=== PATIENT | female | born 1990 | race Caucasian/White ===

== ENCOUNTER 2017-03-05 13:42 | Inpatient (IN) | payer OTHER ==
[~2017-03-05 13:42] MED LIST: MEDR2.5 PO; METF500T PO
[2017-03-05] MEDS ORDERED: BISACODYL 10 MG SUPP RECTAL PRN (14:15)
[2017-03-05] MEDS ORDERED: SODIUM CHLORIDE 0.9% FLUSH 10 ML FLUSH IV FLUSH PRN (14:15)
[2017-03-05] MEDS ORDERED: HYDROmorphone HCL PF 1 MG/ML VIAL IV PRN ×2 (14:15)
[2017-03-05] MEDS ORDERED: NALOXONE HCL 0.4 MG/ML AMP IV PRN (14:15)
[2017-03-05 17:00] VITALS: BP 146/96; PULSE 75; RESP 18; TEMP 98.9; O2SAT 98
--- NOTE | 2017-03-05 17:12 | HHI.HP ---
[facility] Phys[facility] Non-Staff Admission Diagnosis Abdominal pain Diagnoses: Chief Complaint: Abdominal pain Travel History International Travel<30 Days: No Contact w/Intl Traveler <30 Da: No Traveled to Known Affected Are: No History of Present Illness This is a 26-year-old female with history of PCOS on metformin. She presents to the emergency department with 2 day history of constant, dull moderate right lower quadrant abdominal pain associated with nausea for 2 days, vomiting 2 today, diarrhea with 7 watery nonbloody and nonmucoid stools past 24 hours and anorexia. No sick contacts, recent travel, seafood ingestion but drinks well water. Sometimes she also has shooting pain in the right lower quadrant depending on her activity. Denies fever, chills, UTI symptoms, vaginal discharge or PID symptoms. She has had an ovarian cyst in the past. Patient has been recommended hospitalization for further evaluation and treatment. Gen. surgery is suspecting early appendicitis. LMP 02/28/17. All other systems reviewed negative Review of Systems Except as stated in HPI: all other systems reviewed are Neg Past Family Social History Past Medical History As previously mentioned Past Surgical History Tonsillectomy Reported Medications Metformin and Provera Allergies: Coded Allergies: Sulfa (Verified Allergy, Unknown, breathing difficulty, 03/05/17) Social History Does not smoke or drink Physical Exam Vital Signs Blood pressure 126/88 heart rate of 76 respiratory 20 temperature 97.4 oxygen saturation 98% on room air Physical Exam GENERAL: This is a well-nourished, well-developed patient, in no apparent distress. SKIN: No rashes, ecchymoses or lesions. Cool and dry. HEAD: Atraumatic. Normocephalic. No temporal or scalp tenderness. EYES: Pupils equal round and reactive. Extraocular motions intact. No scleral icterus. No injection or drainage. ENT: Nose without bleeding, purulent drainage or septal hematoma. Throat without erythema, tonsillar hypertrophy or exudate. Uvula midline. Airway patent. Dry oral mucosa NECK: Trachea midline. No JVD or lymphadenopathy. Supple, nontender, no meningeal signs. CARDIOVASCULAR: Regular rate and rhythm without murmurs, gallops, or rubs. RESPIRATORY: Clear to auscultation. Breath sounds equal bilaterally. No wheezes , rales, or rhonchi. GASTROINTESTINAL: Abdomen soft, tender right lower quadrant, she has Rovsing sign, nondistended. No guarding. Pelvic exam negative per ER M.D. MUSCULOSKELETAL: Extremities without clubbing, cyanosis, or edema. No joint tenderness, effusion, or edema noted. No calf tenderness. Negative Homans sign bilaterally. NEUROLOGICAL: Awake and alert. Cranial nerves II through XII intact. Motor and sensory grossly within normal limits. Five out of 5 muscle strength in all muscle groups. Normal speech. Imaging Abdominal CT read as negative Assessment and Plan Problem List: (1) Abdominal pain ICD Code: R10.9 Status: Acute Assessment and Plan This is a 26-year-old female who presents to the emergency department with 2 day history of constant moderate right lower quadrant abdominal pain associated with nausea for 2 days, vomiting 2 today, diarrhea with 7 watery nonbloody and nonmucoid stools past 24 hours and anorexia. No sick contacts, recent travel, seafood ingestion but drinks well water. Sometimes she also has shooting pain in the right lower quadrant depending on her activity. Right lower quadrant abdominal pain associated with nausea, vomiting and diarrhea. I think this is gastroenteritis with dehydration though she has significant abdominal exam findings with tenderness on the right lower quadrant and Rovsing sign. CT of the abdomen is unremarkable. Gen. surgery has recommended hospitalization suspecting early appendicitis. Keep patient nothing by mouth, IV fluids, and pain management with IV Dilaudid. Obtain stool studies and follow-up genital cultures Elevated AST. This is mild. Monitor. Hold metformin for now History of PCOS Low risk for DVT Raoul Shrestha MD Mar 05, 2017 17:12
[2017-03-05] MEDS: NS + KCL 20 MEQ INJ 1,000 ML IV SCH (19:28)
[2017-03-05] MEDS: HYDROmorphone HCL PF 1 MG/ML VIAL IV PRN ×2 (19:29→23:26)
[2017-03-05 20:00] VITALS: BP 142/84; PULSE 75; RESP 18; TEMP 97.6; O2SAT 98
--- NOTE | 2017-03-05 20:22 | PD.CONS ---
HPI Service General Surgery Consult Requested By Dr. Shrestha Reason for Consult Abdominal pain, possible appendicitis Primary Care Physician Non-Staff History of Present Illness The patient is a 26-year-old female with a history of polycystic ovarian syndrome who presents with right lower abdominal pain since 2:30 PM yesterday afternoon. This has been associated with multiple episodes of diarrhea yesterday and wanted to today as well as nausea and vomiting. She's had anorexia. She has had ovarian cysts in the past, however, this pain has been much more prolonged. In addition about a year and a half ago she states that she had an episode of diverticulitis with diagnosis confirmed by CT scan which resolved with antibiotics. The patient was evaluated in the emergency department in [place] and noted to have the above history as well as severe right lower quadrant tenderness with otherwise basically unremarkable exam, labs and imaging including CT abdomen and pelvis reported as unremarkable. Due to the history and physical exam findings, she was admitted for further evaluation and workup as well as for concerns of appendicitis. Review of Systems Constitutional: DENIES: Fever, Chills Eyes: DENIES: Eye inflammation, Eye pain Ears, nose, mouth, throat: DENIES: Throat pain, Running Nose Respiratory: DENIES: Cough, Wheezing Cardiovascular: DENIES: Chest pain, Lower Extremity Edema Gastrointestinal: COMPLAINS OF: Abdominal pain, Diarrhea, Nausea, Vomiting Integumentary: DENIES: Pruritus, Rash Neurologic: DENIES: Paresthesias, Seizures Past Family Social History Past Medical History PCOS Diverticulitis Past Surgical History Tonsillectomy Reported Medications Reported Meds & Active Scripts Active Reported Provera (Medroxyprogesterone Acetate) 2.5 Mg Tab Unknown Dose PO MONTHLY PRN Start day 21 Metformin (Metformin HCl) 500 Mg Tab 500 Mg PO BIDPC With meals Allergies: Coded Allergies: Sulfa (Verified Allergy, Unknown, breathing difficulty, 03/05/17) Active Ordered Medications Current Medications Medications (Trade) Dose Ordered Sig/Grzegorz Route Start Time Stop Time Status Last Admin (NS + KCl 20 Meq Inj) 1,000 ml @ 100 mls/hr Q10H IV 03/05/17 18:00 03/05/17 19:28 (NS Flush) 2 ml UNSCH PRN IV FLUSH 03/05/17 14:15 (NS Flush) 2 ml BID IV FLUSH 03/05/17 21:00 (Zofran Inj) 4 mg Q6H PRN IVP 03/05/17 14:15 (Dilaudid Pf Inj) 0.5 mg Q3H PRN IV 03/05/17 14:15 (Dilaudid Pf Inj) 1 mg Q3H PRN IV 03/05/17 14:15 03/05/17 19:29 (Dilaudid Pf Inj) 1 mg Q3H PRN IV 03/05/17 14:15 (Narcan Inj) 0.4 mg UNSCH PRN IV 03/05/17 14:15 (Dulcolax Supp) 10 mg DAILY PRN RECTAL 03/05/17 14:15 Family History Noncontributory Social History No current tobacco or alcohol use. Physical Exam Vital Signs Vital Signs Date Time Temp Pulse Resp B/P Pulse Ox O2 Delivery O2 Flow Rate FiO2 03/05/17 17:00 98.9 75 18 146/96 98 Physical Exam GENERAL: Awake and alert. No acute distress. Cooperative. Obese. HEAD: Normocephalic. Atraumatic. EYES: Pupils equal round and reactive to light bilaterally. No scleral icterus. CHEST: Lungs clear to auscultation bilaterally with no wheezing or rhonchi. No respiratory distress. CARDIOVASCULAR: Regular rate and rhythm. ABDOMEN: Obese. Nondistended. Severe right lower quadrant tenderness to palpation with positive rebound tenderness. Positive Rovsing sign. Mild tenderness in left lower quadrant and right upper quadrant. EXTREMITIES: No cyanosis or edema. SKIN: Warm, dry, nonjaundiced. Laboratory White blood count was 7.7 with normal neutrophil percentage Imaging CT abdomen and pelvis from the [place] ED visit was reviewed Assessment and Plan Assessment and Plan 26-year-old female with morbid obesity and PCOS presents with abdominal pain. Differential diagnosis includes gastroenteritis, appendicitis, mesenteric lymphadenitis, diverticulitis, ruptured ovarian cyst. The history and exam could be consistent with appendicitis but this is not supported by lab work or imaging. I recommend repeat evaluation in the morning, and repeat CBC. C dif and stool cultures have been ordered which I agree with. Based on her course will consider continued observation vs repeat CT vs OR. I would not start antibiotics at this time. Discussed Condition With Sky Corona Dr., MD Mar 05, 2017 20:22
[2017-03-05] MEDS: SODIUM CHLORIDE 0.9% FLUSH 10 ML FLUSH IV FLUSH SCH (21:00)
[2017-03-06] VITALS: BP 129/75; PULSE 70; RESP 18; TEMP 96.9; O2SAT 97
[2017-03-06] MEDS: HYDROmorphone HCL PF 1 MG/ML VIAL IV PRN ×6 (03:00→20:51)
[2017-03-06 04:00] VITALS: BP 140/81; PULSE 73; RESP 18; TEMP 96.6; O2SAT 97
[2017-03-06] MEDS: NS + KCL 20 MEQ INJ 1,000 ML IV SCH ×3 (04:00→16:03)
[2017-03-06] MEDS: ONDANSETRON HCL 4 MG/2 ML VIAL IVP PRN ×2 (06:35→12:43)
[2017-03-06] MEDS: SODIUM CHLORIDE 0.9% FLUSH 10 ML FLUSH IV FLUSH SCH ×2 (07:35→20:50)
[2017-03-06 08:08] LABS: AUTOMATED NEUTROPHIL # 4.7 TH/MM3 (1.8-7.7); BASOPHIL % 0.6 % (0.0-2.0); EOSINOPHIL # 0.1 TH/MM3 (0-0.4); EOSINOPHIL % 0.8 % (0.0-4.0); HEMATOCRIT 39.1 % (35.0-46.0); HEMO FLAGS DIFF FINAL; LYMPH % 28.4 % (9.0-44.0); MEAN CELL VOLUME 87.4 FL (80.0-100.0); MEAN CORPUSCULAR HEMOGLOBIN 28.7 PG (27.0-34.0); MEAN CORPUSCULAR HGB CONC 32.8 % (32.0-36.0); MONO % 4.7 % (0.0-8.0); NEUT % 65.5 % (16.0-70.0); PLATELET COUNT 373 TH/MM3 (150-450); RED BLOOD COUNT 4.47 MIL/MM3 (4.00-5.30); WHITE BLOOD COUNT 7.1 TH/MM3 (4.0-11.0)
[2017-03-06 08:26] VITALS: BP 133/77; PULSE 73; RESP 20; TEMP 97.5; O2SAT 95
[2017-03-06 08:28] LABS: BICARBONATE 26.5 MEQ/L (21.0-32.0); MAGNESIUM 2.2 MG/DL (1.5-2.5)
--- NOTE | 2017-03-06 09:04 | HHI.PR ---
Subjective Subjective Notes She had a couple of episodes of emesis overnight. She c/o persistent severe RLQ pain. Objective Vitals/I&O Vital Signs Date Time Temp Pulse Resp B/P Pulse Ox O2 Delivery O2 Flow Rate FiO2 03/06/17 08:26 97.5 73 20 133/77 95 Labs Laboratory Tests Test 03/06/17 06:26 White Blood Count 7.1 Red Blood Count 4.47 Hemoglobin 12.8 Hematocrit 39.1 Mean Corpuscular Volume 87.4 Mean Corpuscular Hemoglobin 28.7 Mean Corpuscular Hemoglobin 32.8 Concent Red Cell Distribution Width 14.0 Platelet Count 373 Mean Platelet Volume 9.4 Neutrophils (%) (Auto) 65.5 Lymphocytes (%) (Auto) 28.4 Monocytes (%) (Auto) 4.7 Eosinophils (%) (Auto) 0.8 Basophils (%) (Auto) 0.6 Neutrophils # (Auto) 4.7 Lymphocytes # (Auto) 2.0 Monocytes # (Auto) 0.3 Eosinophils # (Auto) 0.1 Basophils # (Auto) 0.0 CBC Comment DIFF FINAL Differential Comment Sodium Level 138 Potassium Level 4.0 Chloride Level 104 Carbon Dioxide Level 26.5 Anion Gap 8 Blood Urea Nitrogen 7 Creatinine 0.74 Estimat Glomerular Filtration 96 Rate Random Glucose 111 Calcium Level 8.6 Magnesium Level 2.[address] abdomen and pelvis from the [place] ED visit was reviewed Narrative Exam NAD Abd: severe ttp in RLQ, mild LLQ and RUQ ttp A/P Assessment and Plan 26 yo F with abdominal pain, vomiting, severe RLQ ttp. Labs are completely normal but exam is fairly impressive. I will repeat CT a/p today. I discussed the options of observation, diagnostic laparoscopy, and repeat CT with the patient. Drew,Sky LAM Mar 06, 2017 09:03
--- NOTE | 2017-03-06 09:23 | HHI.PR ---
Subjective Remarks Follow-up abdominal pain. Still with right lower quadrant pain scale of 5 out of 10. Vomited [address] of the abdomen pelvis per general surgery. Discussed with RN Objective Vitals Vital Signs Date Time Temp Pulse Resp B/P Pulse Ox O2 Delivery O2 Flow Rate FiO2 03/06/17 08:26 97.5 73 20 133/77 95 03/06/17 04:00 96.6 73 18 140/81 97 03/06/17 00:00 96.9 70 18 129/75 97 03/05/17 20:00 97.6 75 18 142/84 98 03/05/17 17:00 98.9 75 18 146/96 98 I/O 03/05/17 03/05/17 03/05/17 03/06/17 03/06/17 03/06/17 07:00 15:00 23:00 07:00 15:00 23:00 Intake Total 1200 ml Output Total 8 ml Balance -8 ml 1200 ml Intake IV Total 1200 ml Output Urine Total 5 ml Stool Total 3 ml # Voids 5 Result Diagram: 03/06/1762503/06/17 06 Objective Remarks GENERAL: This is a well-nourished, well-developed patient, in no apparent distress. SKIN: No rashes, ecchymoses or lesions. Cool and dry. HEAD: Atraumatic. Normocephalic. No temporal or scalp tenderness. EYES: Pupils equal round and reactive. Extraocular motions intact. No scleral icterus. No injection or drainage. ENT: Nose without bleeding, purulent drainage or septal hematoma. Throat without erythema, tonsillar hypertrophy or exudate. Uvula midline. Airway patent. Dry oral mucosa NECK: Trachea midline. No JVD or lymphadenopathy. Supple, nontender, no meningeal signs. CARDIOVASCULAR: Regular rate and rhythm without murmurs, gallops, or rubs. RESPIRATORY: Clear to auscultation. Breath sounds equal bilaterally. No wheezes , rales, or rhonchi. GASTROINTESTINAL: Abdomen soft, tender right lower quadrant, she has Rovsing sign, nondistended. No guarding. MUSCULOSKELETAL: Extremities without clubbing, cyanosis, or edema. No joint tenderness, effusion, or edema noted. No calf tenderness. Negative Homans sign bilaterally. NEUROLOGICAL: Awake and alert. Cranial nerves II through XII intact. Motor and sensory grossly within normal limits. Five out of 5 muscle strength in all muscle groups. Normal speech. Procedures None A/P Problem List: (1) Abdominal pain ICD Code: R10.9 Status: Acute Assessment and Plan This is a 26-year-old female who presents to the emergency department with 2 day history of constant moderate right lower quadrant abdominal pain associated with nausea for 2 days, vomiting 2 today, diarrhea with 7 watery nonbloody and nonmucoid stools past 24 hours and anorexia. No sick contacts, recent travel, seafood ingestion but drinks well water. Sometimes she also has shooting pain in the right lower quadrant depending on her activity. Right lower quadrant abdominal pain associated with nausea, vomiting and diarrhea. Still has significant abdominal exam findings with tenderness on the right lower quadrant and Rovsing sign. Repeat CT of the abdomen pelvis has been ordered by general surgery. Keep patient nothing by mouth, IV fluids, and pain management with IV Dilaudid. Obtain stool studies and follow-up genital cultures Elevated AST. This is mild. Monitor. Hold metformin for now Hyperglycemia. Obtain A1c History of PCOS Low risk for DVT Discharge Planning Not ready for discharge Raoul Shrestha MD Mar 06, 2017 09:23
[2017-03-06] MEDS ORDERED: DIATRIZOATE MEGLUM/DIATRIZOATE SOD 9 ML CUP PO ONE (09:30)
[2017-03-06 12:35] VITALS: BP 123/69; PULSE 72; RESP 20; TEMP 96.7; O2SAT 96
[2017-03-06] MEDS ORDERED: IOHEXOL 350 MG/ML 10 ML VIAL (for RAD DIAG) IV ONE (13:53)
[2017-03-06 16:00] VITALS: BP 132/79; PULSE 66; RESP 20; TEMP 96.3; O2SAT 98
[2017-03-06] MEDS: METOCLOPRAMIDE HCL 10 MG/2 ML VIAL IV PUSH PRN (16:03)
--- NOTE | 2017-03-06 16:21 | HHI.PR ---
Subjective Subjective Notes Repeat CT a/p clearly shows normal appendix. D/w Dr. Vinicius Lopez. She does have sanchez ovarian cysts and her sister had ovarian torsion. Will order a pelvic u/s. I will also start her on flagyl and consult GI. D/w Taya TIERNEY. I discussed this all with the patient and she understands. Drew,Sky LAM Mar 06, 2017 16:20
[2017-03-06] MEDS: metroNIDAZOLE 500 MG TAB PO SCH (16:43)
[2017-03-06 17:31] LABS: HEMOGLOBIN A1b 1.9 %; HEMOGLOBIN Ao 86.5 %; HEMOGLOBIN LA1C 1.8 %; HEMOGLOBIN P3 3.3 %
--- NOTE | 2017-03-06 17:36 | RADRPT ---
EXAM DATE/TIME: 03/06/2017 13:38 [facility] COMPARISON: CT ABDOMEN & PELVIS W CONTRAST, March 05, 2017, 11:42. INDICATIONS : Severe right lower quadrant pain. IV CONTRAST: 95 cc Omnipaque 350 (iohexol) IV ORAL CONTRAST: Prescribed oral contrast ingested. RADIATION DOSE: 19.79 CTDIvol (mGy) MEDICAL HISTORY : None SURGICAL HISTORY : None. ENCOUNTER: Initial ACUITY: 2 days PAIN SCALE: 5/10 LOCATION: Right lower quadrant TECHNIQUE: Volumetric scanning of the abdomen and pelvis was performed. Using automated exposure control and ad justment of the mA and/or kV according to patient size, radiation dose was kept as low as reasonably achievable to obtain optimal diagnostic quality images. The necessity for repeat exam was discussed with Dr. Russell FINDINGS: The lung bases are clear. There is mild fatty replacement to the liver. The spleen, pancreas, adren als and kidneys are unremarkable. Region of the cecum and terminal ileum are unremarkable. There is no evidence for an appendicitis. Approximately 2 cm from the terminal ileum, there is small focal enlargement of the distal terminal i leum, nonspecific. There are no inflammatory changes around this. This may be artifactual. A Mecke l's diverticulum could have a similar appearance. Cystic masses in both adnexa regions largest on the right measuring 5 cm with no free fluid. CONCLUSION: 1. Cystic masses in both adnexal regions. 2. Questionable abnormality distal terminal ileum, very nonspecific. 3. Normal appendix filled with contrast. Vitor Lopez MD FACR on March 06, 2017 at 13:58 Board Certified Radiologist. This report was verified electronically.
--- NOTE | 2017-03-06 17:44 | PD.CONS ---
HPI History of Present Illness This is a 26 year old female who presented to the emergency room with right lower quadrant pain, nausea, and vomiting. Her symptoms began suddenly Saturday afternoon around 2 PM. She developed a constant dull ache in her right lower quadrant that radiates to the right side and also to her right upper quadrant. She reports that the pain is constant although it comes sharp and more severe with any type of movement. She also had associated nausea and vomiting, consisting of bilious material but no hematemesis. She had diarrhea on Saturday and Saturday with multiple loose stools without any obvious blood or mucus. On Saturday, she had 3-4 loose bowel movements and on Saturday she had 4-5. She denies any fevers or chills. She went to [facility] and was evaluated with CT scan abdomen and pelvis with IV contrast (03/05/17)-----> negative exam. She was sent to [facility] for evaluation by for possible appendicitis. The CT was reviewed by Dr. Russell and Dr. Lopez and they felt that it clearly showed a normal appendix. Bilateral ovarian cysts were seen. A pelvic US was ordered to rule out ovarian torsion given her history of PCOS. The official report is pending, but the US tech noted that she had good blood flow on doppler. GI was consulted for further evaluation. She denies any recent travel, suspicious food, antibiotics, or sick contacts. She has a history of diverticulitis about a year ago. Afterwards, she was evaluated with EGD/Colonoscopy for follow up on this and to evaluate some epigastric discomfort that she was having at the time. This was done by Dr. Graves in [place] and she reports that she had a small esophageal ulcer and benign polyps. She states that they were going to do further testing to evaluate her gallbladder, but her insurance changed and therefore she never had this done. She denies any history of inflammatory bowel disease. She denies any heartburn , reflux, hematemesis, constipation, melena, or hematochezia. Her paternal grandfather had colon cancer. [facility] Past Medical History Polycystic ovarian disease/ovarian cysts Diverticulitis Esophageal ulcer Benign colon polyps. Past Surgical History Tonsillectomy EGD/colonoscopy Tympanostomy Coded Allergies: Sulfa (Verified Allergy, Unknown, breathing difficulty, 03/05/17) Medications Allergies Coded Allergies Type Severity Reaction Last Updated Verified Sulfa Allergy Unknown breathing difficulty 03/05/17 Yes Active Scripts Medications Dose Route/Sig Days Date Category Dose Instructions Provera (Medroxyprogesterone Acetate) 2.5 Mg Tab Unknown Dose PO MONTHLY PRN 03/05/17 Reported Start day 21 Metformin (Metformin HCl) 500 Mg Tab 500 Mg PO BIDPC 03/05/17 Reported With meals Family History PGF had colon cancer Social History Social smoker, quit 6-12 months ago. Occasional ETOH No illicit drug use. Review of Systems Constitutional: DENIES: Fatigue, Weight loss, Change in appetite Respiratory: DENIES: Cough Cardiovascular: DENIES: Chest pain Gastrointestinal: COMPLAINS OF: Abdominal pain, Diarrhea, Nausea, Vomiting, DENIES: Black stools, Bloody stools, Constipation, Anorexia, Swelling of Abdomen , Heartburn, Hematemesis Musculoskeletal: COMPLAINS OF: Back pain Integumentary: DENIES: Abnormal pigmentation, Rash Hematologic/lymphatic: DENIES: Bruising Neurologic: COMPLAINS OF: Headache Psychiatric: DENIES: Confusion GI Exam Vitals I&O Vital Signs Date Time Temp Pulse Resp B/P Pulse Ox O2 Delivery O2 Flow Rate FiO2 03/06/17 16:00 96.3 66 20 132/79 98 03/06/17 12:35 96.7 72 20 123/69 96 03/06/17 08:26 97.5 73 20 133/77 95 03/06/17 04:00 96.6 73 18 140/81 97 03/06/17 00:00 96.9 70 18 129/75 97 03/05/17 20:00 97.6 75 18 142/84 98 I/O 03/05/17 03/05/17 03/05/17 03/06/17 03/06/17 03/06/17 07:00 15:00 23:00 07:00 15:00 23:00 Intake Total 1751 ml Output Total 8 ml 500 ml Balance -8 ml 1251 ml Intake IV Total 1751 ml Output Urine Total 5 ml Stool Total 3 ml Emesis 500 ml # Voids 5 7 Laboratory Test 03/06/17 06:26 White Blood Count 7.1 TH/MM3 Red Blood Count 4.47 MIL/MM3 Hemoglobin 12.8 GM/DL Hematocrit 39.1 % Mean Corpuscular Volume 87.4 FL Mean Corpuscular Hemoglobin 28.7 PG Mean Corpuscular Hemoglobin 32.8 % Concent Red Cell Distribution Width 14.0 % Platelet Count 373 TH/MM3 Mean Platelet Volume 9.4 FL Neutrophils (%) (Auto) 65.5 % Lymphocytes (%) (Auto) 28.4 % Monocytes (%) (Auto) 4.7 % Eosinophils (%) (Auto) 0.8 % Basophils (%) (Auto) 0.6 % Neutrophils # (Auto) 4.7 TH/MM3 Lymphocytes # (Auto) 2.0 TH/MM3 Monocytes # (Auto) 0.3 TH/MM3 Eosinophils # (Auto) 0.1 TH/MM3 Basophils # (Auto) 0.0 TH/MM3 CBC Comment DIFF FINAL Differential Comment Sodium Level 138 MEQ/L Potassium Level 4.0 MEQ/L Chloride Level 104 MEQ/L Carbon Dioxide Level 26.5 MEQ/L Anion Gap 8 MEQ/L Blood Urea Nitrogen 7 MG/DL Creatinine 0.74 MG/DL Estimat Glomerular Filtration 96 ML/MIN Rate Random Glucose 111 MG/DL Calcium Level 8.6 MG/DL Magnesium Level 2.2 MG/DL Physical Examination HEENT: Normocephalic; atraumatic; no jaundice. CHEST: CTA CARDIAC: RRR ABDOMEN: Soft, nondistended, mild to moderate RLQ tenderness; no hepatosplenomegaly; bowel sounds are present in all four quadrants. EXTREMITIES: No clubbing, cyanosis, or edema. SKIN: Normal; no rash; no jaundice. MEDICAL OFFICE WORKER: No focal deficits; alert and oriented times three. Assessment and Plan Plan ASSESSMENT: - RLQ Abdominal pain with N/V/D, unclear etiology. Symptoms began suddenly Saturday at 2pm- constant dull ache radiating to back and RUQ with severe sharp pain associated with movement, n/v with bilious material. She did initially have diarrhea Saturday/Saturday, but states she has not had any further episodes since arriving and getting pain meds. No recent travel , suspicious foods, sick contacts. No hx of IBD. No wt loss. She was seen at the [facility] ER and had a unremarkable CT scan. She was sent to [facility] for GS evaluation for possible appendicitis. She is afebrile with a normal WBC. The CT was reviewed by Dr. Russell and Dr. Lopez and they felt that it clearly showed a normal appendix, bilateral ovarian cysts were seen. Pelvic US was done to r/o ovarian torsion given her history of PCOS. The official report is pending, but the US tech noted that she had good blood flow on doppler. She had diverticulitis about a year ago. Afterwards, she was evaluated with EGD/Colonoscopy for follow up on this and to evaluate some epigastric discomfort that she was having at the time. This was done by Dr. Graves in [place] and she reports that she had a small esophageal ulcer and benign polyps. She states that they were going to do further testing to evaluate her gallbladder, but her insurance changed and therefore she never had this done. FHx paternal gf with colon cancer. Flagyl. Pain persists, although n/v/d has improved. PPI, Flagyl, IVF. - PCOS per primary PLAN: - Clear liquids - Cont. Flagyl - Cont. PPI - Cont. Zofran prn - Stool studies - Supportive care - Consider EGD/Colonoscopy if no improvement to rule out IBD - Pt seen and examined by Dr. Kay and myself and this note is written on his behalf Taya Cheney Mar 06, 2017 17:44
--- NOTE | 2017-03-06 18:06 | RADRPT ---
EXAM DATE/TIME: 03/06/2017 16:59 [facility] COMPARISON: CT ABDOMEN & PELVIS W CONTRAST, March 05, 2017, 11:42. CT ABDOMEN & PELVIS W CONTRAST, March 06, 2017, 13:38. INDICATIONS : Right pelvic pain. MEDICAL HISTORY : PCOS. SURGICAL HISTORY : Tonsillectomy. Adnoids removed. Tubes in ears. ENCOUNTER: Initial ACUITY: 2 days PAIN SCORE: 7/10 LOCATION: Bilateral pelvis MEASUREMENTS: UTERUS: 7.4 x 5.1 x 3.3 cm ENDOMETRIAL STRIPE: 4 mm RIGHT OVARY: 3.9 x 3.4 x 2.7 cm LEFT OVARY: 4.3 x 3.1 x 3.1 cm FINDINGS: UTERUS: The myometrium has homogeneous echotexture without mass. RIGHT OVARY: Ovary contains no mass or significant cystic lesion. Blood flow is documented. LEFT OVARY: Ovary contains no mass or significant cystic lesion. Blood flow is documented. MISCELLANEOUS: No free fluid. CONCLUSION: Normal pelvis ultrasound. Miguel Aceves MD on March 06, 2017 at 18:01 Board Certified Radiologist. This report was verified electronically.
[2017-03-06 20:00] VITALS: BP 134/72; PULSE 78; RESP 18; TEMP 97.5; O2SAT 98
[2017-03-07] VITALS: BP 133/68; PULSE 106; RESP 18; TEMP 97.2; O2SAT 90
[2017-03-07] MEDS: HYDROmorphone HCL PF 1 MG/ML VIAL IV PRN ×8 (00:02→23:49)
[2017-03-07] MEDS: METOCLOPRAMIDE HCL 10 MG/2 ML VIAL IV PUSH PRN ×4 (00:02→23:49)
[2017-03-07] MEDS: metroNIDAZOLE 500 MG TAB PO SCH ×3 (00:03→16:24)
[2017-03-07 04:00] VITALS: BP 126/79; PULSE 77; RESP 18; TEMP 97.6; O2SAT 97
[2017-03-07 08:00] VITALS: BP 133/78; PULSE 71; RESP 18; TEMP 95.9; O2SAT 95
--- NOTE | 2017-03-07 08:27 | HHI.PR ---
Subjective Remarks Follow-up right lower quadrant abdominal pain. Improving pain. Complains of nausea today. Resolved diarrhea. Patient counseled regarding narcotics. Discussed with RN Objective Vitals Vital Signs Date Time Temp Pulse Resp B/P Pulse Ox O2 Delivery O2 Flow Rate FiO2 03/07/17 04:00 97.6 77 18 126/79 97 03/07/17 00:00 97.2 106 18 133/68 90 03/06/17 20:00 97.5 78 18 134/72 98 03/06/17 16:00 96.3 66 20 132/79 98 03/06/17 12:35 96.7 72 20 123/69 96 I/O 03/06/17 03/06/17 03/06/17 03/07/17 03/07/17 03/07/17 07:00 15:00 23:00 07:00 15:00 23:00 Intake Total 1751 ml 1624 ml Output Total 500 ml 700 ml Balance 1251 ml 924 ml Intake IV Total 1751 ml 1624 ml Output Urine Total 700 ml Emesis 500 ml # Voids 5 7 Result Diagram: 03/06/17 0626 03/06/17 0626 Imaging Last Impressions Pelvis Ultrasound 03/06/17 0000 Signed Impressions: Service Date/Time: Monday, March 06, 2017 16:59 - CONCLUSION: Normal pelvis ultrasound. Miguel Aceves MD Objective Remarks GENERAL: This is a well-nourished, well-developed patient, in no apparent distress. SKIN: No rashes, ecchymoses or lesions. Cool and dry. HEAD: Atraumatic. Normocephalic. No temporal or scalp tenderness. EYES: Pupils equal round and reactive. Extraocular motions intact. No scleral icterus. No injection or drainage. ENT: Nose without bleeding, purulent drainage or septal hematoma. Throat without erythema, tonsillar hypertrophy or exudate. Uvula midline. Airway patent. NECK: Trachea midline. No JVD or lymphadenopathy. Supple, nontender, no meningeal signs. CARDIOVASCULAR: Regular rate and rhythm without murmurs, gallops, or rubs. RESPIRATORY: Clear to auscultation. Breath sounds equal bilaterally. No wheezes , rales, or rhonchi. GASTROINTESTINAL: Abdomen soft, improving tenderness right lower quadrant, she has Rovsing sign, nondistended. No guarding. MUSCULOSKELETAL: Extremities without clubbing, cyanosis, or edema. No joint tenderness, effusion, or edema noted. No calf tenderness. Negative Homans sign bilaterally. NEUROLOGICAL: Awake and alert. Cranial nerves II through XII intact. Motor and sensory grossly within normal limits. Five out of 5 muscle strength in all muscle groups. Normal speech. Procedures None A/P Problem List: (1) Abdominal pain ICD Code: R10.9 Status: Acute Assessment and Plan This is a 26-year-old female who presents to the emergency department with 2 day history of constant moderate right lower quadrant abdominal pain associated with nausea for 2 days, vomiting 2 today, diarrhea with 7 watery nonbloody and nonmucoid stools past 24 hours and anorexia. No sick contacts, recent travel, seafood ingestion but drinks well water. Sometimes she also has shooting pain in the right lower quadrant depending on her activity. Right lower quadrant abdominal pain associated with nausea, vomiting and diarrhea. No appendicitis on repeat CT. Improving symptoms but still has significant pain with tenderness on the right lower quadrant. Continue clears, IV fluids, and pain management with IV Dilaudid. Add Lortab. Follow-up stool studies negative to date. Negative genital cultures. Patient had EGD/ Colonoscopy in [address] Graves in [place] and she reports that she had a small esophageal ulcer and benign polyps. Started patient on Flagyl. Follow-up abdominal sonogram. Consider repeat endoscopy to evaluate for IBD if symptoms persist Elevated AST. This is mild. Monitor. Hold metformin for now Hyperglycemia. A1c 5.3 History of PCOS Low risk for DVT Discharge Planning Not ready for discharge Raoul Shrestha MD Mar 07, 2017 08:27
[2017-03-07] MEDS ORDERED: NALOXONE HCL 0.4 MG/ML AMP IV PRN (08:30)
[2017-03-07] MEDS ORDERED: ACETAMINOPHEN/HYDROcodone 325 MG/10 MG TAB PO PRN (08:30)
[2017-03-07] MEDS ORDERED: ACETAMINOPHEN/HYDROcodone 325 MG/5 MG TAB PO PRN (08:30)
[2017-03-07] MEDS: SODIUM CHLORIDE 0.9% FLUSH 10 ML FLUSH IV FLUSH SCH ×2 (09:00→20:58)
[2017-03-07] MEDS: NS + KCL 20 MEQ INJ 1,000 ML IV SCH ×2 (09:39→20:57)
--- NOTE | 2017-03-07 11:50 | RADRPT ---
EXAM DATE/TIME: 03/07/2017 08:28 [facility] COMPARISON: CT ABDOMEN & PELVIS W CONTRAST, March 06, 2017, 13:38. INDICATIONS : Abdominal pain. MEDICAL HISTORY : Abdominal pain. Nausea/vomiting. Depression. SURGICAL HISTORY : Tonsillectomy. Adenoidectomy. Ear tubes. ENCOUNTER: Initial ACUITY: 4-6 days PAIN SCORE: 6/10 LOCATION: Abdomen. MEASUREMENTS: LIVER: 15.4 cm length COMMON DUCT: 5 mm RIGHT KIDNEY: 12.2 x 6.6 x 5.2 cm LEFT KIDNEY: 12.1 x 5.6 x 5.9 cm SPLEEN: 11.5 cm length AORTA: 2.2cm maximal FINDINGS: LIVER: Increased echotexture without focal lesion or ductal dilatation. COMMON DUCT: No intraluminal mass or stone visualized. GALLBLADDER: Contains no stones, demonstrates no wall thickening or pericholecystic fluid. PANCREAS: The visualized portions are within normal limits. RIGHT KIDNEY: No hydronephrosis, stone or mass. LEFT KIDNEY: No hydronephrosis, stone or mass. SPLEEN: No focal lesion. AORTA: Non aneurysmal. IVC: Within normal limits. CONCLUSION: Hepatic steatosis. The remainder of the examination is within normal limits. Miguel Aceves MD on March 07, 2017 at 11:45 Board Certified Radiologist. This report was verified electronically.
[2017-03-07 12:09] LABS: C. DIFF EPI 027 PRESUMPTIVE NEGATIVE (NEGATIVE); C. DIFF TOXIN PCR NEGATIVE (NEGATIVE)
--- NOTE | 2017-03-07 13:17 | HHI.GIFU ---
Subjective Remarks Pt resting in bed, in no apparent distress. Say she just threw up her jello. She still has right side abd pain. Objective Vitals I&O Vital Signs Date Time Temp Pulse Resp B/P Pulse Ox O2 Delivery O2 Flow Rate FiO2 03/07/17 08:00 95.9 71 18 133/78 95 03/07/17 04:00 97.6 77 18 126/79 97 03/07/17 00:00 97.2 106 18 133/68 90 03/06/17 20:00 97.5 78 18 134/72 98 03/06/17 16:00 96.3 66 20 132/79 98 I/O 03/06/17 03/06/17 03/06/17 03/07/17 03/07/17 03/07/17 07:00 15:00 23:00 07:00 15:00 23:00 Intake Total 1751 ml 1624 ml Output Total 500 ml 700 ml Balance 1251 ml 924 ml Intake IV Total 1751 ml 1624 ml Output Urine Total 700 ml Emesis 500 ml # Voids 5 7 Laboratory Laboratory Tests Test 03/07/17 10:30 Stool C. difficile Toxin (PCR) NEGATIVE Stl C. difficile Toxin PRESUMPTIVE Epiderm 027 NEGATIVE Date/Time Procedure Status Source Growth 03/07/17 10:30 Cryptosporidium Exam Received Stool Stool Pending 03/07/17 10:30 Stool Pus (DANIEL) Received Stool Stool Pending 03/07/17 10:30 Giardia Antigen (DANIEL) Received Stool Stool Pending 03/07/17 10:30 Received Stool Stool Pending Imaging Last Impressions Abdomen Ultrasound 03/07/17 0000 Signed Impressions: Service Date/Time: February 08:28 - CONCLUSION: Hepatic steatosis. The remainder of the examination is within normal limits. Miguel Aceves MD Pelvis Ultrasound 03/06/17 0000 Signed Impressions: Service Date/Time: Monday, March 06, 2017 16:59 - CONCLUSION: Normal pelvis ultrasound. Miguel Aceves MD Physical Exam HEENT: PERRL; normocephalic; atraumatic; no jaundice. CHEST: CTA CARDIAC: RRR ABDOMEN: Soft, obese, right side TTP; no hepatosplenomegaly; bowel sounds are present in all four quadrants. EXTREMITIES: No clubbing, cyanosis, or edema. SKIN: Normal; no rash; no jaundice. THERAPY TEACHER: No focal deficits; alert and oriented times three. Assessment and Plan Plan ASSESSMENT: - RLQ Abdominal pain with N/V/D, unclear etiology. US 03-06-17--> Hepatic steatosis. The remainder of the examination is within normal limits. Symptoms began suddenly Saturday at 2pm- constant dull ache radiating to back and RUQ with severe sharp pain associated with movement, n/v with bilious material. She did initially have diarrhea Saturday/Saturday, but states she has not had any further episodes since arriving and getting pain meds. No recent travel , suspicious foods, sick contacts. No hx of IBD. No wt loss. She was seen at the [facility] ER and had a unremarkable CT scan. She was sent to [facility] for GS evaluation for possible appendicitis. She is afebrile with a normal WBC. The CT was reviewed by Dr. Russell and Dr. Lopez and they felt that it clearly showed a normal appendix, bilateral ovarian cysts were seen. Pelvic US was done to r/o ovarian torsion given her history of PCOS. The official report is pending, but the tech noted that she had good blood flow on doppler. She had diverticulitis about a year ago. Afterwards, she was evaluated with EGD/Colonoscopy for follow up on this and to evaluate some epigastric discomfort that she was having at the time. This was done by Dr. Graves in [place] and she reports that she had a small esophageal ulcer and benign polyps. She states that they were going to do further testing to evaluate her gallbladder, but her insurance changed and therefore she never had this done. FHx paternal gf with colon cancer. Flagyl. c diff neg. Pain persists, although n/v/d has improved. PPI, Flagyl, IVF. - PCOS per primary PLAN: - HIDA - Clear liquids - Cont. Flagyl - Cont. PPI - Cont. Zofran prn - Stool studies - Supportive care - Consider EGD/Colonoscopy if no improvement to rule out IBD - Pt seen and examined by Dr. Kay and myself and this note is written on his behalf Yen Montes Mar 07, 2017 13:17
[2017-03-07 14:12] LABS: AUTOMATED NEUTROPHIL # 4.2 TH/MM3 (1.8-7.7); BASOPHIL % 0.6 % (0.0-2.0); BICARBONATE 29.5 MEQ/L (21.0-32.0); EOSINOPHIL # 0.1 TH/MM3 (0-0.4); EOSINOPHIL % 1.4 % (0.0-4.0); HEMATOCRIT 36.7 % (35.0-46.0); HEMO FLAGS DIFF FINAL; LYMPH % 29.5 % (9.0-44.0); MAGNESIUM 2.2 MG/DL (1.5-2.5); MEAN CELL VOLUME 86.5 FL (80.0-100.0); MEAN CORPUSCULAR HEMOGLOBIN 29.3 PG (27.0-34.0); MEAN CORPUSCULAR HGB CONC 33.8 % (32.0-36.0); MONO % 5.6 % (0.0-8.0); NEUT % 62.9 % (16.0-70.0); PLATELET COUNT 376 TH/MM3 (150-450); RED BLOOD COUNT 4.24 MIL/MM3 (4.00-5.30); RED CELL DISTRIBUTION WIDTH 13.8 % (11.6-17.2); WHITE BLOOD COUNT 6.7 TH/MM3 (4.0-11.0)
[2017-03-07 16:13] VITALS: BP 143/73; PULSE 73; RESP 20; TEMP 97.5; O2SAT 95
[2017-03-07 20:15] VITALS: BP 145/89; PULSE 74; RESP 18; TEMP 98.6; O2SAT 96
[2017-03-08 00:30] VITALS: BP 134/84; PULSE 67; RESP 18; TEMP 97.9; O2SAT 96
[2017-03-08 04:15] VITALS: BP 125/88; PULSE 64; RESP 21; TEMP 98; O2SAT 98
[2017-03-08] MEDS: NS + KCL 20 MEQ INJ 1,000 ML IV SCH ×2 (05:10→16:00)
[2017-03-08] MEDS: SODIUM CHLORIDE 0.9% FLUSH 10 ML FLUSH IV FLUSH SCH (09:00)
[2017-03-08] MEDS: metroNIDAZOLE 500 MG TAB PO SCH ×2 (09:00)
--- NOTE | 2017-03-08 09:15 | HHI.PR ---
Subjective Remarks Follow-up abdominal pain and nausea. Required 4 doses of IV Reglan and 6 doses of IV Dilaudid past 24 hours. This am, improving pain 02/23. Still with nausea and loose stools x 3. Pt made aware of negative HIDA. She has to show nursing her loose stools Objective Vitals Vital Signs Date Time Temp Pulse Resp B/P Pulse Ox O2 Delivery O2 Flow Rate FiO2 03/08/17 04:15 98.0 64 21 125/88 98 03/08/17 00:30 97.9 67 18 134/84 96 03/07/17 20:15 98.6 74 18 145/89 96 03/07/17 16:13 97.5 73 20 143/73 95 I/O 03/07/17 03/07/17 03/07/17 03/08/17 03/08/17 03/08/17 07:00 15:00 23:00 07:00 15:00 23:00 Intake Total 1624 ml 1000 ml Output Total 700 ml Balance 924 ml 1000 ml Intake Oral 1000 ml IV Total 1624 ml Output Urine Total 700 ml # Voids 3 # Bowel Movements 0 Result Diagram: 03/07/17 1306 03/07/17 1306 Imaging Last Impressions Abdomen Ultrasound 03/07/17 0000 Signed Impressions: Service Date/Time: February 08:28 - CONCLUSION: Hepatic steatosis. The remainder of the examination is within normal limits. Miguel Aceves MD Pelvis Ultrasound 03/06/17 0000 Signed Impressions: Service Date/Time: Monday, March 06, 2017 16:59 - CONCLUSION: Normal pelvis ultrasound. Miguel Aceves MD Objective Remarks GENERAL: This is a well-nourished, well-developed patient, in no apparent distress. SKIN: No rashes, ecchymoses or lesions. Cool and dry. HEAD: Atraumatic. Normocephalic. No temporal or scalp tenderness. EYES: Pupils equal round and reactive. Extraocular motions intact. No scleral icterus. No injection or drainage. ENT: Nose without bleeding, purulent drainage or septal hematoma. Throat without erythema, tonsillar hypertrophy or exudate. Uvula midline. Airway patent. NECK: Trachea midline. No JVD or lymphadenopathy. Supple, nontender, no meningeal signs. CARDIOVASCULAR: Regular rate and rhythm without murmurs, gallops, or rubs. RESPIRATORY: Clear to auscultation. Breath sounds equal bilaterally. No wheezes , rales, or rhonchi. GASTROINTESTINAL: Abdomen soft, improving tenderness right lower quadrant, she still has Rovsing sign, nondistended. No guarding. MUSCULOSKELETAL: Extremities without clubbing, cyanosis, or edema. No joint tenderness, effusion, or edema noted. No calf tenderness. Negative Homans sign bilaterally. NEUROLOGICAL: Awake and alert. Cranial nerves II through XII intact. Motor and sensory grossly within normal limits. Five out of 5 muscle strength in all muscle groups. Normal speech. Procedures None A/P Problem List: (1) Abdominal pain ICD Code: R10.9 Status: Acute Assessment and Plan This is a 26-year-old female who presents to the emergency department with 2 day history of constant moderate right lower quadrant abdominal pain associated with nausea for 2 days, vomiting 2 today, diarrhea with 7 watery nonbloody and nonmucoid stools past 24 hours and anorexia. No sick contacts, recent travel, seafood ingestion but drinks well water. Sometimes she also has shooting pain in the right lower quadrant depending on her activity. Right lower quadrant abdominal pain associated with nausea, vomiting and diarrhea. No appendicitis on repeat CT. Improving symptoms but still has significant pain with tenderness on the right lower quadrant associated with nausea. She required multiple doses of IV Dilaudid and IV Reglan.. Negative HIDA. Nausea could be from narcs. Diarrhea not witnessed. ? Drug seeking. Dc IV narcs. Advance diet to regular, prn IV fluids, and pain management with IV toradol and Lortab. Follow-up stool studies negative to date. Negative genital cultures. Patient had EGD/Colonoscopy in [address] Graves in [place] and she reports that she had a small esophageal ulcer and benign polyps. Continue Flagyl. Consider repeat endoscopy to evaluate for IBD if symptoms persist Elevated AST. This is mild. Monitor. Hold metformin for now Hyperglycemia. A1c 5.3 History of PCOS Low risk for DVT Discharge Planning Possible dc today if tolerating po and po meds effective Raoul Shrestha MD Mar 08, 2017 09:15
--- NOTE | 2017-03-08 10:09 | RADRPT ---
EXAM DATE/TIME: 03/08/2017 08:53 [facility] COMPARISON: No previous studies available for comparison. INDICATIONS : Abdominal pain. DOSE: 4.1 mCi Tc99m Mebrofenin IV MEDICAL HISTORY : None SURGICAL HISTORY : Tonsillectomy. ENCOUNTER: Initial ACUITY: 2 days PAIN SCALE: 4/10 LOCATION: Right upper quadrant TECHNIQUE: Following the intravenous administration of radiotracer, dynamic sequential images were performed wit h continuous acquisition. FINDINGS: HEPATIC KINETICS: There is prompt uptake of radiotracer in the liver. No focal defects are seen. There is normal rate of washout from the hepatic parenchyma. BILIARY CLEARANCE: Activity is first seen in the extrahepatic biliary system at 15 minutes. There is normal excretion i nto the small bowel. GALLBLADDER: Activity is first seen in the gallbladder at 30 minutes. Common bile duct kinetics are normal and th ere is no evidence of biliary obstruction. BILIARY ENTRIC REFLUX: None observed. CONCLUSION: Negative for cystic duct or common duct obstruction. Vitor Lopez MD FACR on March 08, 2017 at 10:02 Board Certified Radiologist. This report was verified electronically.
[2017-03-08] MEDS: METOCLOPRAMIDE HCL 10 MG/2 ML VIAL IV PUSH PRN (10:29)
[2017-03-08] MEDS: HYDROmorphone HCL PF 1 MG/ML VIAL IV PRN (10:31)
[2017-03-08] MEDS ORDERED: METR-1 PO (10:43)
[2017-03-08] MEDS ORDERED: HYDR-3583 PO (10:43)
[2017-03-08] MEDS ORDERED: ZOFR4TAB PO (10:43)
--- NOTE | 2017-03-08 10:44 | HHI.DCPOC ---
Discharge Care Plan Diagnosis: (1) Abdominal pain Your Health Problems Are: Difficulty with ADL Exercise Tolerance Goals to Promote Your Health * To prevent worsening of your condition and complications * To maintain your health at the optimal level Directions to Meet Your Goals Take your medications as prescribed Follow your dietary instruction Follow activity as directed Keep your appointments as scheduled Take your immunizations and boosters as scheduled If your symptoms worsen call your PCP, if no PCP go to Urgent Care Center or Emergency Room Smoking is Dangerous to Your Health. Avoid second hand smoke Call the 24-hour hour crisis hotline for domestic abuse at Raoul Shrestha MD Mar 08, 2017 10:44
[2017-03-08] MEDS ORDERED: KETOROLAC TROMETHAMINE 30 MG/ML (IVP) VIAL IV PUSH PRN (11:15)
[2017-03-08 12:00] VITALS: BP 142/82; PULSE 70; RESP 20; TEMP 96.8; O2SAT 94
--- NOTE | 2017-03-08 14:00 | HHI.GIFU ---
Subjective Remarks Pt sitting up in bed, getting ready to eat lunch. Mother at bedside. She still has RUQ discomfort but says it is much improved. Some nausea but controlled with meds. She wants to go home so is trying to eat, chicken fingers and fries. Objective Vitals I&O Vital Signs Date Time Temp Pulse Resp B/P Pulse Ox O2 Delivery O2 Flow Rate FiO2 03/08/17 12:00 96.8 70 20 142/82 94 03/08/17 04:15 98.0 64 21 125/88 98 03/08/17 00:30 97.9 67 18 134/84 96 03/07/17 20:15 98.6 74 18 145/89 96 03/07/17 16:13 97.5 73 20 143/73 95 I/O 03/07/17 03/07/17 03/07/17 03/08/17 03/08/17 03/08/17 07:00 15:00 23:00 07:00 15:00 23:00 Intake Total 1624 ml 1000 ml Output Total 700 ml Balance 924 ml 1000 ml Intake Oral 1000 ml IV Total 1624 ml Output Urine Total 700 ml # Voids 3 # Bowel Movements 0 1 Laboratory Date/Time Procedure Status Source Growth 03/07/17 10:30 Cryptosporidium Exam Resulted Stool Stool Pending 03/07/17 10:30 Stool Pus (DANIEL) - Final Resulted Stool Stool NO WBC'S SEEN 03/07/17 10:30 Giardia Antigen (DANIEL) Resulted Stool Stool Pending 03/07/17 10:30 Received Stool Stool Pending Imaging Last Impressions Hepatobiliary Scan Nuclear Medicine 03/08/17 0000 Signed Impressions: Service Date/Time: Wednesday, March 08, 2017 08:53 - CONCLUSION: Negative for cystic duct or common duct obstruction. Vitor Lopez MD FACR Abdomen Ultrasound 03/07/17 0000 Signed Impressions: Service Date/Time: February 08:28 - CONCLUSION: Hepatic steatosis. The remainder of the examination is within normal limits. Miguel Aceves MD Pelvis Ultrasound 03/06/17 0000 Signed Impressions: Service Date/Time: Monday, March 06, 2017 16:59 - CONCLUSION: Normal pelvis ultrasound. Miguel Aceves MD Physical Exam HEENT: PERRL; normocephalic; atraumatic; no jaundice. CHEST: CTA CARDIAC: RRR ABDOMEN: Soft, obese, mild RUQ TTP; no hepatosplenomegaly; bowel sounds are present in all four quadrants. EXTREMITIES: No clubbing, cyanosis, or edema. SKIN: Normal; no rash; no jaundice. ENVIRONMENTAL ATTORNEY: No focal deficits; alert and oriented times three. Assessment and Plan Plan ASSESSMENT: - RLQ Abdominal pain with N/V/D, unclear etiology. HIDA 03-07-17 NEG. US 03-06-17 --> Hepatic steatosis. The remainder of the examination is within normal limits. Symptoms began suddenly Saturday at 2pm- constant dull ache radiating to back and RUQ with severe sharp pain associated with movement, n/v with bilious material. She did initially have diarrhea Saturday/Saturday, but states she has not had any further episodes since arriving and getting pain meds. No recent travel , suspicious foods, sick contacts. No hx of IBD. No wt loss. She was seen at the [facility] ER and had a unremarkable CT scan. She was sent to [facility] for GS evaluation for possible appendicitis. She is afebrile with a normal WBC. The CT was reviewed by Dr. Russell and Dr. Lopez and they felt that it clearly showed a normal appendix, bilateral ovarian cysts were seen. Pelvic US was done to r/o ovarian torsion given her history of PCOS. Normal pelvic US. Abd US showed fatty liver. She had diverticulitis about a year ago. Afterwards, she was evaluated with EGD/Colonoscopy for follow up on this and to evaluate some epigastric discomfort that she was having at the time. This was done by Dr. Graves in [place] and she reports that she had a small esophageal ulcer and benign polyps. She states that they were going to do further testing to evaluate her gallbladder, but her insurance changed and therefore she never had this done. FHx paternal gf with colon cancer. Flagyl. c diff neg. Pain persists, although n/v/d has improved. PPI, Flagyl, IVF. - fatty liver per US - PCOS per primary PLAN: - DEBO - Cont. Flagyl - Cont. PPI - Cont. Zofran prn - await Stool studies - Supportive care - pt does not want repeat colonoscopy. - healthy diet, weight loss encouraged - f/u with GI as outpatient in 2 w - GI will sign off for now. Please reconsult if needed. - Pt seen and examined by Dr. Kay and myself and this note is written on his behalf Yen Montes Mar 08, 2017 14:00
[2017-03-08 16:00] VITALS: BP 138/76; PULSE 96; RESP 20; TEMP 96; O2SAT 97
--- NOTE | 2017-03-08 16:01 | HHI.DS ---
Discharge Summary Admission Date Mar 06, 2017 at 13:31 Discharge Date: Mar 08, 2017 Admitting Diagnosis Abdominal pain (1) Abdominal pain ICD Code: R10.9 Diagnosis: Principal Procedures None Brief History - From Admission This is a 26-year-old female with history of PCOS on metformin. She presents to the emergency department with 2 day history of constant, dull moderate right lower quadrant abdominal pain associated with nausea for 2 days, vomiting 2 today, diarrhea with 7 watery nonbloody and nonmucoid stools past 24 hours and anorexia. No sick contacts, recent travel, seafood ingestion but drinks well water. Sometimes she also has shooting pain in the right lower quadrant depending on her activity. Denies fever, chills, UTI symptoms, vaginal discharge or PID symptoms. She has had an ovarian cyst in the past. Patient has been recommended hospitalization for further evaluation and treatment. Gen. surgery is suspecting early appendicitis. LMP 02/28/17. All other systems reviewed negative CBC/BMP: 03/07/17 1306 03/07/17 1306 Significant Findings Laboratory Tests Test 03/06/17 03/07/17 06:26 13:06 Random Glucose 111 MG/DL (74-106) Blood Urea Nitrogen 6 MG/DL (7-18) Imaging Last Impressions Hepatobiliary Scan Nuclear Medicine 03/08/17 0000 Signed Impressions: Service Date/Time: Wednesday, March 08, 2017 08:53 - CONCLUSION: Negative for cystic duct or common duct obstruction. Vitor Lopez MD FACR Abdomen Ultrasound 03/07/17 0000 Signed Impressions: Service Date/Time: February 08:28 - CONCLUSION: Hepatic steatosis. The remainder of the examination is within normal limits. Miguel Aceves MD Pelvis Ultrasound 03/06/17 0000 Signed Impressions: Service Date/Time: Monday, March 06, 2017 16:59 - CONCLUSION: Normal pelvis ultrasound. Miguel Aceves MD PE at Discharge GENERAL: This is a well-nourished, well-developed patient, in no apparent distress. SKIN: No rashes, ecchymoses or lesions. Cool and dry. HEAD: Atraumatic. Normocephalic. No temporal or scalp tenderness. EYES: Pupils equal round and reactive. Extraocular motions intact. No scleral icterus. No injection or drainage. ENT: Nose without bleeding, purulent drainage or septal hematoma. Throat without erythema, tonsillar hypertrophy or exudate. Uvula midline. Airway patent. NECK: Trachea midline. No JVD or lymphadenopathy. Supple, nontender, no meningeal signs. CARDIOVASCULAR: Regular rate and rhythm without murmurs, gallops, or rubs. RESPIRATORY: Clear to auscultation. Breath sounds equal bilaterally. No wheezes , rales, or rhonchi. GASTROINTESTINAL: Abdomen soft, improving tenderness right lower quadrant, she still has Rovsing sign, nondistended. No guarding. MUSCULOSKELETAL: Extremities without clubbing, cyanosis, or edema. No joint tenderness, effusion, or edema noted. No calf tenderness. Negative Homans sign bilaterally. NEUROLOGICAL: Awake and alert. Cranial nerves II through XII intact. Motor and sensory grossly within normal limits. Five out of 5 muscle strength in all muscle groups. Normal speech. Hospital Course This is a 26-year-old female who presents to the emergency department with 2 day history of constant moderate right lower quadrant abdominal pain associated with nausea for 2 days, vomiting 2 today, diarrhea with 7 watery nonbloody and nonmucoid stools past 24 hours and anorexia. No sick contacts, recent travel, seafood ingestion but drinks well water. Sometimes she also has shooting pain in the right lower quadrant depending on her activity. Right lower quadrant abdominal pain associated with nausea, vomiting and diarrhea. No appendicitis on repeat CT. Improving symptoms but still has significant pain with tenderness on the right lower quadrant associated with nausea. She required multiple doses of IV Dilaudid and IV Reglan.. Negative HIDA. Nausea could be from narcs. Diarrhea not witnessed. ? Drug seeking. Dc IV narcs. Advance diet to regular, prn IV fluids, and pain management with IV toradol and Lortab. Follow-up stool studies negative to date. Negative genital cultures. Patient had EGD/Colonoscopy in [address] Graves in [place] and she reports that she had a small esophageal ulcer and benign polyps. Continue Flagyl. Consider repeat endoscopy to evaluate for IBD if symptoms persist Elevated AST. This is mild. Monitor. Hold metformin for now Hyperglycemia. A1c 5.3 History of PCOS Low risk for DVT Discharge Planning Possible dc today if tolerating po and po meds effective Pt Condition on Discharge: Stable Discharge Disposition: Discharge Home Discharge Time: > 30 minutes Discharge Instructions DIET: Follow Instructions for: As Tolerated, No Restrictions Activities you can perform: Regular-No Restrictions Activities to Avoid: Driving Follow up Referrals: PCP Follow-up - 1 Week New Medications: Ondansetron (Zofran) 4 Mg Tab 4 MG PO Q6HR PRN NAUSEA OR VOMITING #30 Ref 0 TAB Hydrocodone-Acetaminophen (Hydrocodone-Acetaminophen) 10-325 mg Tab 1 TAB PO Q6HR PRN PAIN SCALE 6 TO 10 #28 TAB Metronidazole (Flagyl) 500 Mg Tab 500 MG PO Q8H Infection #15 TAB Additional Information I spent 35 minutes [id number] with the patient or on the curry discussing the patient's disposition, prognosis, and plan of care with patient's caregivers. Over half the time spent was devoted to counseling the patient regarding placement in coordinating care with caregivers and case management. Raoul Shrestha MD Mar 08, 2017 16:01
== END 2017-03-08 17:33 | disposition home or self-care (01) | DRG 392 ==
LOC: NEDDLT 13:42 → N05A 17:20 → OBSVTOIN 03-06 13:31
PROVIDERS: ADMIT Internal Medicine; ATTEND Internal Medicine
DX: K52.9 Noninfective gastroenteritis and colitis, unspecified (principal); E28.2 Polycystic ovarian syndrome; R73.9 Hyperglycemia, unspecified; K76.0 Fatty (change of) liver, not elsewhere classified; E66.01 Morbid (severe) obesity due to excess calories; E86.0 Dehydration; Z88.2 Allergy status to sulfonamides; Z80.0 Family history of malignant neoplasm of digestive organs; Z86.010 Personal history of colon polyps; Z87.891 Personal history of nicotine dependence
CPT/HCPCS: 74177; 76700; 76856; 78226; 80048; 80053; 81001; 82948; 83036; 83690; 83735; 84702; 85025; 87205; 87210; 87328; 87329; 87491; 87493; 87506; 87591; 93975; 96361; 96374; 96375; 96376; 99281; A9537; G0378; J1170; J2405; J2765; J3480; J7030; Q9963; Q9967